=== PATIENT | female | born 1965 | race Caucasian/White ===

== ENCOUNTER 2022-10-19 03:00 | Emergency (ER) | payer MEDICAID ==
[~2022-10-19] VITALS: Ht 170.2 cm; Wt 68.0 kg
--- NOTE | 2022-10-19 03:27 | NUR ---
[id number] FOR C/O MIGRAINE X2 DAYS CURRENTLY 04/10 DESCRIBED PRESSURE TO HER FOREHEAD RADIATING BILATERALLY TO TEMPORALS. ENDORSES N/V WITH WEAKNESS XTODAY. PT AWAKE AND ALERTX4 NO NEURO DEFECITS NOTED BREATHING UNLABORED. V/S WNL.
[2022-10-19] MEDS ORDERED: METOCLOPRAMIDE HCL 10 MG/2 ML VIAL IV ONE (03:30)
[2022-10-19] MEDS ORDERED: IV NS 0.9% 1,000 ML BAG IV ONE (03:30)
[2022-10-19] MEDS ORDERED: SUMATRIPTAN SUCCINATE 6 MG/0.5 ML VIAL SQ ONE ×2 (03:30→03:39)
[2022-10-19] MEDS ORDERED: METOCLOPRAMIDE HCL 10 MG/2 ML VIAL ONE (03:39)
--- NOTE | 2022-10-19 03:46 | NUR ---
20G IV STARTED AT [facility]. SALINE LOCKED
--- NOTE | 2022-10-19 04:40 | NUR ---
PT BEING TRANSPORTED TO CT [facility]IA [facility]
--- NOTE | 2022-10-19 06:21 | NUR ---
Patient discharged to home in stable condition. Written and verbal after care instructions given. Patient verbalizes understanding of instruction.IV removed. Catheter intact and site benign. Pressure and 4x4 applied to site. No bleeding noted.
[2022-10-19 06:38] VITALS: BP 139/87
== END 2022-10-19 06:30 | disposition home or self-care (01) ==
LOC: ER 03:07
DX: G44.209 Tension-type headache, unspecified, not intractable (principal); F43.9 Reaction to severe stress, unspecified
CPT/HCPCS: 99285; 96374; 70450; 96361; 96372; J3030; J2765; J7030

== ENCOUNTER 2022-10-23 19:49 | Emergency (ER) | payer MEDICAID ==
[~2022-10-23] VITALS: Ht 167.6 cm; Wt 65.8 kg
[2022-10-23] MEDS ORDERED: diphenhydrAMINE HCL 25 MG CAPSULE PO ONE (21:00)
[2022-10-23] MEDS ORDERED: IV NS 0.9% 1,000 ML BAG IV ONE (21:00)
[2022-10-23] MEDS ORDERED: PROCHLORPERAZINE EDISYLATE 10 MG/2 ML VIAL IVP ONE (21:00)
[2022-10-23] MEDS ORDERED: PROCHLORPERAZINE EDISYLATE 10 MG/2 ML VIAL ONE (21:01)
[2022-10-23] MEDS ORDERED: diphenhydrAMINE HCL 25 MG CAPSULE ONE (21:02)
[2022-10-23 22:02] VITALS: BP 140/80
== END 2022-10-23 22:02 | disposition home or self-care (01) ==
LOC: ER 19:51
DX: G43.909 Migraine, unspecified, not intractable, without status migrainosus (principal); Z60.2 Problems related to living alone
CPT/HCPCS: 99283; 96374; 96361; J0780; J7030; Q0163